=== PATIENT | female | born 1965 | race Caucasian/White ===

== ENCOUNTER 2023-10-08 09:33 | Outpatient (CLI) | payer OTHER | END 2023-10-08 09:35 | disposition home or self-care (01) | LOC: NUCLEAR 09:33 | DX: R00.0 Tachycardia, unspecified (principal) ==

== ENCOUNTER 2024-02-01 10:38 | Outpatient (CLI) | payer OTHER ==
[2024-02-01 13:24] LABS: % SATURACION 20.6 % (15-50)
[2024-02-01 13:26] LABS: BILIRUBIN TOTAL 0.72 mg/dL (0.3-1.2); CALCIUM 9.3 mg/dL (8.5-10.1); CREATININE SERUM 0.55 mg/dL (0.55-1.02); GFR 113.92; GLOBULINA 2.9 G/DL (2.4-3.5); POTASSIUM 3.69 mEq/L (3.5-5.1); TOTAL PROTEIN 6.9 gm/dL (6.4-8.2)
[2024-02-01 14:01] LABS: FOLIC ACID > 20.00 ng/ml (4.78-20)
[2024-02-04 08:22] LABS: MANUAL PLATELET COUNT 226
[2024-02-04 08:23] LABS: PLATELET ESTIMATE NORMAL (NORMAL)
[2024-02-05 09:07] LABS: ANTI THYROID PEROXIDASE 10 IU/mL (0-34); COMPLEMENT C3 117 mg/dL (82-167); COMPLEMENT C4 29 mg/dL (12-38); TRANSFERIN 250 mg/dL (192-364)
[2024-02-05 15:08] LABS: DNA AB DOUBLE STRABDED < 1 IU/mL (0-9)
[2024-02-05 17:06] LABS: ERYTHROPOIETIN 15.2 mIU/mL (2.6-18.5)
[2024-02-06 15:11] LABS: PARIETAL CELL ANTIBODIES 1.5 Units (0.0-20.0)
== END 2024-02-01 10:40 | disposition home or self-care (01) ==
LOC: LAB 10:38
PROVIDERS: ATTEND Internal Medicine Hematology & Oncology
DX: E03.8 Other specified hypothyroidism (principal); M06.9 Rheumatoid arthritis, unspecified; D72.818 Other decreased white blood cell count; I10 Essential (primary) hypertension; I34.1 Nonrheumatic mitral (valve) prolapse; R80.8 Other proteinuria; D50.8 Other iron deficiency anemias; R79.9 Abnormal finding of blood chemistry, unspecified; K76.89 Other specified diseases of liver; D51.0 Vitamin B12 deficiency anemia due to intrinsic factor deficiency; D63.1 Anemia in chronic kidney disease; D51.1 Vitamin B12 deficiency anemia due to selective vitamin B12 malabsorption with proteinuria; R74.02 Elevation of levels of lactic acid dehydrogenase [LDH]; E06.3 Autoimmune thyroiditis